=== PATIENT | female | born 1930 | race Caucasian/White ===

== ENCOUNTER 2016-10-15 15:24 | Inpatient (IN) | payer MEDICARE, MEDICAID ==
[~2016-10-15] VITALS: Ht 162.6 cm; Wt 98.9 kg
--- NOTE | 2016-10-15 17:15 | NUR ---
22 GAUGE IV SITED TO RIGHT FOREARM X1 ATTEMPT. FLUSHES EASY WITH BRISK BLOOD RETURN PRESENT. SECURED WITH TAPE AND TEGADERM.
[2016-10-15 17:18] VITALS: BP 149/67; BMI 37.5
--- NOTE | 2016-10-15 19:30 | NUR ---
ASSISTED PATIENT TO THE BEDSIDE COMMODE, WITH ASSIST FROM ANOTHER NURSE. PATIENT WAS ABLE TO STAND AND BEAR HER OWN WEIGHT, SHE DOES HAVE AN UNSTEADY GAIT. SHE SAT ON THE BEDSIDE COMMODE. HANDED HER THE CALL LIGHT. TOLD HER TO CALL WHEN SHE IS FINISHED AND REMINDED HER NOT TO GET UP BY HERSELF. SHE AGREED STATING "IF YOU FELL MANY TIMES I HAVE YOU WOULD NOT WANT TO GET UP BY YOURSELF EITHER."
--- NOTE | 2016-10-15 19:45 | NUR ---
ASSISTED PATIENT STANDING UP, WIPED PATIENT USING THE WIPES. ASSISTED HER GETTING INTO THE BED. CALL LIGHT IN REACH. BED RAILS UP X'S 3. BED ALARM ON. PATIENT DENIES FURTHER NEEDS AT THIS TIME.
[2016-10-15 20:00] VITALS: BP 121/73
[2016-10-15] MEDS ORDERED: LASIX40 MG PO (21:58)
[2016-10-15] MEDS ORDERED: NEXIUM40 MG PO (21:59)
[2016-10-15] MEDS ORDERED: TOPROL XL50 MG PO (21:59)
[2016-10-15] MEDS ORDERED: NEURONTIN 300300 MG PO (21:59)
[2016-10-15] MEDS ORDERED: COLACE100 MG PO (22:00)
[2016-10-15] MEDS ORDERED: PRINIVIL20 MG PO (22:00)
[2016-10-15] MEDS ORDERED: BAYER CHEWABLE81 MG PO (22:00)
[2016-10-15] MEDS ORDERED: ULTRAM50 MG PO (22:01)
[2016-10-15] MEDS ORDERED: SYNTHROID50 MCG PO (22:01)
--- NOTE | 2016-10-15 23:33 | NUR ---
RESTING QUIETLY WITH EYES CLOSED. RECIEVING 2L/MIN OXYGEN VIA NASAL CANNULA. NO SIGNS OF DISTRESS NOTED. BED IN LOWEST POSITION, CALL LIGHT IN REACH. BED RAILS UP X'S 2. BED ALARM ON.
[2016-10-16] VITALS: BP 104/77
[2016-10-16 04:00] VITALS: BP 114/68
[2016-10-16 06:39] LABS: BASOPHILS 0.3 % (0-2); EOSINOPHILS 1.2 % (0-7); HEMATOCRIT 38.7 % (36.0-48.0); HEMOGLOBIN 12.6 g/dL (12-16); IMMATURE GRANULOCYTES 0.3 % (0-5); LYMPHOCYTES 26.9 % (15-50); MCH 29.9 pg (26.0-34.0); MCHC 32.6 g/dL (31.0-37.0); MCV 91.7 fL (80.0-100.0); MEAN PLATELET VOLUME 9.8 fL (7.4-10.4); MONOCYTES 13.7 % (2-11); NEUTROPHILS 57.6 % (40-80); PLATELET COUNT 147 10x3/uL (130-400); RBC 4.22 10x6/uL (4.00-5.40); RDW 13.9 % (11.5-14.5); WBC 5.8 10x3/uL (4.8-10.8)
[2016-10-16 06:50] LABS: ANION GAP 11.3 mmol/L (8-16); CALCIUM 8.3 mg/dL (8.5-10.1); CARBON DIOXIDE 26.1 mmol/L (21.0-32.0); CREATININE - SERUM 0.8 mg/dL (0.6-1.3); POTASSIUM - SERUM 3.4 mmol/L (3.5-5.1)
[2016-10-16 07:21] VITALS: BP 110/60
--- NOTE | 2016-10-16 07:48 | NUR ---
PATIENT IN BED WITH EYES CLOSED RESTING QUIETLY. IV INTACT. O2 ON. CALL LIGHT WITHIN REACH.
[2016-10-16 10:09] VITALS: Ht 162.6 cm; Wt 98.9 kg
[2016-10-16 11:06] VITALS: BP 118/55
[2016-10-16 15:05] VITALS: BP 135/51
--- NOTE | 2016-10-16 18:27 | NUR ---
PATIENT UP AT SINK WASHING HANDS AT THIS TIME. ZITHROMYCIN STARTED IV. PATIENT BACK TO BED WITH NO COMPLAINTS. CALL LIGHT WITHIN REACH.
[2016-10-16 20:00] VITALS: BP 130/54
--- NOTE | 2016-10-16 21:00 | NUR ---
BROUGHT PATIENT JACOB WILDERBEATRIZ FOR A BEDTIME SNACK. HELD INSULIN FOR A FSBS OF 155, SEE MY COMMENT IN THE MAR.
--- NOTE | 2016-10-16 22:11 | NUR ---
ASSISTED PATIENT TO AND FROM THE BEDSIDE COMMODE. PATIENT VOIDED. ASSISTED HER BACK TO BED. BED ALARM ON. NASAL CANNULA ON AT 2L/MIN. PATIENT DENIES NEEDS. HOB AT 40 DEGREES. LIGHTS OFF. PATIENT SAID SHE IS READY TO GO TO SLEEP.
[2016-10-17] VITALS: BP 105/63
[2016-10-17 04:00] VITALS: BP 112/66
[2016-10-17 05:36] LABS: CALC OSMOLALITY 282 mosm/kg (275-300); CALCIUM 8.8 mg/dL (8.5-10.1); CARBON DIOXIDE 26.8 mmol/L (21.0-32.0); CHLORIDE - SERUM 108 mmol/L (98-107); CREATININE - SERUM 0.7 mg/dL (0.6-1.3); GLUCOSE 120 mg/dL (74-106); POTASSIUM - SERUM 3.9 mmol/L (3.5-5.1); SODIUM 141 mmol/L (136-145); UREA NITROGEN 15 mg/dL (7-18); eGFR NON AFRICAN AMERICAN 85 mL/min (90-120)
[2016-10-17 05:38] LABS: BASOPHILS 0.4 % (0-2); HEMATOCRIT 39.7 % (36.0-48.0); HEMOGLOBIN 12.8 g/dL (12-16); IMMATURE GRANULOCYTES 0.2 % (0-5); MCH 29.8 pg (26.0-34.0); MCHC 32.2 g/dL (31.0-37.0); MCV 92.3 fL (80.0-100.0); MONOCYTES 10.4 % (2-11); PLATELET COUNT 148 10x3/uL (130-400); RDW 13.6 % (11.5-14.5); WBC 4.8 10x3/uL (4.8-10.8)
--- NOTE | 2016-10-17 08:14 | NUR ---
PT AOX4 RESP EVEN AND NONLABORED PT DENIES NEEDS AT THIS TIME IV TO RIGHT FOREARM PATENT AND INTACT AT THIS TIME SRX2 BED AT LOWEST SETTING CALL LIGHT WITHIN REACH WILL CONTINUE TO MONITOR
[2016-10-17 09:40] VITALS: BP 142/50
[2016-10-17 12:46] VITALS: BP 136/64
--- NOTE | 2016-10-17 13:00 | NUR ---
REPORT RECIEVED, ASSUMED CARE OF PT. NO COMPLAINTS AT THIS TIME. UP IN CHAIR.
[2016-10-17 16:26] VITALS: BP 132/68
--- NOTE | 2016-10-17 18:49 | NUR ---
PT SITTING UP IN BED, NO COMPLAINTS AT THIS TIME, NO SIGNS OF ACUTE DISTRESS. BED IN LOWEST POSITION, SIDE RAILS UP X 2, CALL LIGHT WITHIN REACH.
--- NOTE | 2016-10-17 19:10 | NUR ---
ASSUMED CARE OF PATIENT. PT IS SITTING UP IN BED NEEDING TO USE RESTROOM, BROUGHT BEDSIDE CLOSER TO PATIENT, PT IS ALERT AND ORIENTED AND ABLE TO AMBULATE WELL WITH NO ASSISTANCE. BED IN LOW POSITION, WILL CONTINUE WITH PLAN OF CARE
[2016-10-17 20:00] VITALS: BP 145/51
[2016-10-18] VITALS: BP 146/60
[2016-10-18 04:00] VITALS: BP 147/58
--- NOTE | 2016-10-18 04:30 | NUR ---
PT RESTING QUIETLY, EYES CLOSED. RESP EVEN, UNLABORED. NO DISTRESS NOTED. CONTINUE WIRE FRAME MAKER'S PLAN OF CARE.
[2016-10-18 04:43] LABS: BASOPHILS 0.4 % (0-2); EOSINOPHILS 6.1 % (0-7); HEMATOCRIT 39.6 % (36.0-48.0); HEMOGLOBIN 12.9 g/dL (12-16); LYMPHOCYTES 38.6 % (15-50); MCHC 32.6 g/dL (31.0-37.0); MCV 92.1 fL (80.0-100.0); MEAN PLATELET VOLUME 9.5 fL (7.4-10.4); MONOCYTES 8.1 % (2-11); NEUTROPHILS 46.8 % (40-80); PLATELET COUNT 151 10x3/uL (130-400); RDW 13.4 % (11.5-14.5); WBC 4.7 10x3/uL (4.8-10.8)
[2016-10-18 04:58] LABS: ANION GAP 10.1 mmol/L (8-16); CALCIUM 8.8 mg/dL (8.5-10.1); CARBON DIOXIDE 30.8 mmol/L (21.0-32.0); CREATININE - SERUM 0.8 mg/dL (0.6-1.3); POTASSIUM - SERUM 3.9 mmol/L (3.5-5.1)
--- NOTE | 2016-10-18 07:30 | NUR ---
RECIEVED PT DURING WALKING ROUNDS. PT RESTING IN CHAIR WITH NO COMPLAINTS OF PAIN OR DISCOMFORT AT THIS TIME. ASSESSMENT DONE PER FLOWSHEET. DISCUESSED WITH PT AT THIS TIME ABOUT DISCHARGE, INFORMED THAT THE DECISION. BED IN LOW POSITION AND CALL YARITZA WIGGINS. WILL CONTINUE TO MONITOR.
[2016-10-18 08:09] VITALS: BP 143/62
[2016-10-18 12:07] VITALS: BP 134/72
--- NOTE | 2016-10-18 13:50 | NUR ---
NUTRITION F/U CHART REVIEWED, PT VISIT. TOLERATING ADA DIET. 100% INTAKE RECENT MEALS. RD FOLLOWING
[2016-10-18] MEDS ORDERED: AUGMENTIN 875-11 TAB PO (13:56)
--- NOTE | 2016-10-18 15:16 | NUR ---
PRESCRIPTION CALLED TO [facility] AT THIS TIME.
--- NOTE | 2016-10-18 15:42 | NUR ---
IV REMOVED AND PT GIVEN DISCHARGE INSTRUCTIONS. DISCHARGED VIA WHEELCHAIR TO HOME WITH A FAMILY MEMBER.
--- NOTE | 2016-10-18 17:19 | NUR ---
PATIENT FOR DISCHARGE THIS PM. SHE APPARENTLY WAS EXTREMELY ANXIOUS TO GO HOME BECAUSE HER SON DID NOT WANT TO WAIT TO TRANSPORT HER. PMD ROUNDED THIS PM. SHE WAS DISCHARGED WITHOUT BEING SEEN BY [facility] CONTINUOUS CHURN. CM CALLED AND SPOKE WITH THE PATIENT SHE HAD BEEN ON SERVICE W/ A [facility]. SHE UTILIZES [facility] PATIENT LIVES IN [facility] ON [address] FOR ELECT[employer] SERVICES 3 DAYS A/ WK FOR 2 HRS. PCP- [facility]- [facility]- [facility]- [facility]- KATELIN REN- SON- [phone] TC TO [facility]. HARIS SPOKE WITH CIRO, THE AUTO TRANSMISSION TECHNICIAN NURSE. FAXED REFERRAL, D/C SUMMARY AND D/C MED LIST W/ INSTRUCTION.
--- NOTE | 2016-10-18 17:57 | NUR ---
PATIENT IS PRESENTLY ON SERVICE / [facility],
== END 2016-10-18 15:44 | disposition home health service (06) | DRG 602 ==
LOC: D.MS 15:24
PROVIDERS: ADMIT Family Medicine
DX: L03.115 Cellulitis of right lower limb (principal); J18.9 Pneumonia, unspecified organism; E11.9 Type 2 diabetes mellitus without complications; G47.33 Obstructive sleep apnea (adult) (pediatric); E78.5 Hyperlipidemia, unspecified; I10 Essential (primary) hypertension; Z95.1 Presence of aortocoronary bypass graft

== ENCOUNTER → 2017-06-06 14:29 | Outpatient (CLI) | payer MEDICARE, MEDICAID ==
[2016-10-16 10:09] VITALS: BMI 37.4
[~2017-06-06 14:29] MED LIST: AUGMENTIN 875-11 TAB PO; BAYER CHEWABLE81 MG PO; COLACE100 MG PO; LASIX40 MG PO; NEURONTIN 300300 MG PO; NEXIUM40 MG PO; PRINIVIL20 MG PO; SYNTHROID50 MCG PO; TOPROL XL50 MG PO; ULTRAM50 MG PO
== END | disposition home or self-care (01) ==
LOC: D.MRI 06-01 15:30
DX: R53.1 Weakness (principal)